=== PATIENT | male | born 1980 | race Caucasian/White ===

== ENCOUNTER 2018-02-23 12:03 | Day surgery (SDC) | payer OTHER ==
[2018-02-19 11:42] VITALS: BMI 26.6
[2018-02-23] MEDS ORDERED: Lidocaine Hydrochloride 10 ML INJ ONE (13:24)
[2018-02-23] MEDS ORDERED: ceFAZolin 1 gm FROZEN Premix 2 GM/100 ML ML IVPB ONE (13:25)
[2018-02-23] MEDS ORDERED: Bupivacaine 0.25% 20 ML INJ IJ ONE (13:25)
[2018-02-23] MEDS ORDERED: Propofol 10 mg/ml Inj (20 ML) ONE (13:57)
[2018-02-23] MEDS ORDERED: Midazolam 2 MG/2 ML VIAL ONE (13:57)
[2018-02-23] MEDS ORDERED: HYDROmorphone 0.5 mg/0.5 ml ISec IVP PRN (14:35)
[2018-02-23 15:53] VITALS: O2SAT 100
[2018-02-23 17:14] VITALS: BP 112/70; PULSE 69; RESP 18; TEMP 97
--- NOTE | 2018-02-24 06:35 | OP ---
PROCEDURE DATE: 02/23/2018 PREOPERATIVE DIAGNOSIS: A 5-cm neoplasm of the right leg, 6-cm neoplasm of the right knee. POSTOPERATIVE DIAGNOSIS: A 5-cm neoplasm of the right leg, 6-cm neoplasm of the right knee. PROCEDURE PERFORMED: Deep excision (radical resection 5 cm of neoplasm of the right leg and wide deep excision, 6 cm neoplasm of the right knee. SURGEON: Bob Quezada MD ANESTHESIA: General endotracheal. ESTIMATED BLOOD LOSS: 30 mL. CONDITION: Stable. 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 DESCRIPTION OF PROCEDURE: Patient transferred to the operating room, general anesthesia was administered. The right lower extremity was prepped and draped. Both neoplasms were marked. Attention was turned to the right leg first. A generous elliptical incision was made surrounding the 5-cm mass. It was carried down into the fascial muscle layer and the mass was completely excised. Bleeding was controlled using the Bovie. A large popliteal blood vessel was mobilized and repaired with 6-0 Prolene. Blood flow was confirmed by Doppler. The wound was irrigated with copious amounts of saline solution. Full-thickness tissue flaps were raised. Counter incisions were made and an advancement flap closure totaling 32 cm2 was performed in the leg incision using heavy subcuticular Monocryl and skin clips. Attention was then turned to the right knee where once again, a large elliptical incision was made surrounding the mass. It was dissected free into the fascial layer and completely removed. Bleeding was controlled using the Bovie. Full-thickness tissue flaps were raised. Once again a 34 cm2 advancement flap closure was performed utilizing counter incisions. The incision was closed with heavy Monocryl and skin clips. The leg was dressed sterilely, wrapped with an Alcides bandage. The patient tolerated procedure well. Returned to recovery room in stable condition. Bob Quezada MD
== END 2018-02-23 17:15 | disposition home or self-care (01) ==
LOC: C.SDS 12:03
PROVIDERS: ATTEND Surgery
DX: I83.10 Varicose veins of unspecified lower extremity with inflammation (principal); D18.00 Hemangioma unspecified site
CPT/HCPCS: 13121; 13122; 27632; 88305; J0690; J1170; J2001; J2250; J2704; J3010

== ENCOUNTER 2018-03-26 20:11 | Inpatient (IN) | payer OTHER | END 2018-03-27 17:40 | disposition home or self-care (01) | LOC: C.3T 03-27 07:30 → C.ER 20:11 → C.9E 21:10 ==